=== PATIENT | male | born 1995 | race Caucasian/White ===

== ENCOUNTER 2016-11-18 13:58 | Emergency (ER) | payer SELFPAY ==
--- NOTE | 2016-12-01 08:25 | ER ---
ADMIT: 11/18/2016 RM/LOC: ER [facility] MR#: [id number] [facility] [address] [place], [place] [id number] [address] [place] [address] Emergency Room Report SEX: M AGE: 20 : 1995 DATE: 11/18/2016 ADDENDUM: This patient comes to the ER because he noticed today that his legs did not seem to be working right. As time has gone on through the day, they are become very weak and he states if he had to walk fast, he probably could not do it. He has difficulty making himself move them he states. He also notices that his upper forearms are weak as well, but not as weak as his legs. He recently last week was diagnosed at [facility] for having influenza. He went in today to [facility] again with the symptoms of weakness and they sent him to the ER. He states he is no longer having fevers, but when he did have influenza, he had fever, chills, sweats, and a lot of body aching. Now, he denies having really any pain at all, feels like he is almost over his illness, but now he has had this weakness. No coughs or colds. No vomiting or diarrhea. On physical exam, this patient does have difficulty walking, and he does appear to have weakness on strength exam and lower legs bilaterally. His strength in his upper arms appears to be normal. Deep tender reflexes in the upper and lower extremities are normal. Sensation is intact. Capillary refill is normal. His white count was 1.9, platelet count 147, and lymphocytes were 52%. His lactate was 2.8. Troponin 0.94, and his CK was 366. CT scan of his head was normal. I did consult with Dr. Rosario concerning treatment of this patient. I was concerned about the peripheral weakness in considering such diagnosis of Guillain-Bronwood and botulism. Dr. Rosario also saw and examined this patient. He spoke with Dr. Cedeno, and this patient is to follow up in the office tomorrow. He is to return to the ER if he has any difficulty breathing and increased weakness. His mother will be with him this evening. Please see my T-sheet. SHELLIE Haas / Carlos Manuel Rosario MD / alesial JOB #: [id number] CC: Carlos Manuel Rosario MD, Attending Physician
== END 2016-11-18 18:50 | disposition home or self-care (01) ==
LOC: ER 13:58
DX: R53.1 Weakness (principal); Z88.0 Allergy status to penicillin; Z90.49 Acquired absence of other specified parts of digestive tract